=== PATIENT | female | born 1955 | race Caucasian/White ===

== ENCOUNTER → 2017-07-18 | Outpatient (CLI) | payer OTHER ==
[~2017-07-18] VITALS: Ht 162.6 cm; Wt 101.2 kg
[~2017-07-18] MED LIST: AMBIEN CR6.25 MG PO; AMLODIPINE BES2.5 MG PO; AMLODIPINE BESYL5 MG PO; Amlodipine Besylate PO; CIPROFLOXACIN500 M1 PO; FARXIGA5 MG PO; FIORICET 50-301 EAC1 PO; FUROSEMIDE40 MG PO; GAS RELIEF180 M1 PO; GLYBURIDE METFORMIN PO; GLYBURIDE-METF1 EAC1 PO; JANUVIA100 MG PO; Keflex PO; LANTUS 3 M100 UNITS1 SC; LEVOXYL125 MCG PO; Lasix PO; MECLIZINE HCL25 MG PO; MELOXICAM7.5 MG PO; METAXALONE800 MG PO; NOVOLOG PE100 UNITS/ SC; PHENTERMINE HCL30 MG PO; RAMIPRIL10 MG PO; SYNTHROID25 MCG PO; TRAMADOL HCL50 MG PO; TRESIBA FL200 UNIT/1 SC; VICTOZA0.6 MG/0.1 SC; WOMEN'S DAILY1 EAC4 PO; ZOLPIDEM TARTRA10 MG PO; Zolpidem Tartrate PO
[2017-07-18 10:34] LABS: CHLORIDE 100 MEQ/L (99-109); CREATININE 0.9 MG/DL (0.6-1.3); GFR ESTIMATE (CALCULATED) > 59 mL/min/; GLUCOSE 53 mg/dL (70-99); POTASSIUM 3.5 MEQ/L (3.7-5.4); SODIUM 139 MEQ/L (136-147); UREA NITROGEN (BUN) 13 mg/dL (9-23)
== END | disposition home or self-care (01) ==
LOC: AMB 06-27 07:00
PROVIDERS: Internal Medicine
PROC: 0DJD8ZZ Inspection of Lower Intestinal Tract, Via Natural or Artificial Opening Endoscopic (ICD-10-PCS; principal; 2017-07-18)
DX: Z12.11 Encounter for screening for malignant neoplasm of colon (principal); K59.00 Constipation, unspecified; K62.89 Other specified diseases of anus and rectum; I10 Essential (primary) hypertension; E11.9 Type 2 diabetes mellitus without complications; Z79.4 Long term (current) use of insulin; E66.9 Obesity, unspecified; Z68.41 Body mass index [BMI] 40.0-44.9, adult; E03.9 Hypothyroidism, unspecified; Z82.61 Family history of arthritis; Z82.49 Family history of ischemic heart disease and other diseases of the circulatory system; Z80.1 Family history of malignant neoplasm of trachea, bronchus and lung; Z83.3 Family history of diabetes mellitus; Z82.0 Family history of epilepsy and other diseases of the nervous system; Z88.0 Allergy status to penicillin; Z88.8 Allergy status to other drugs, medicaments and biological substances
CPT/HCPCS: 80048; 82948; J2250; J3010

== ENCOUNTER 2017-07-29 10:02 | Day surgery (SDC) | payer OTHER ==
[~2017-07-29] VITALS: Ht 162.6 cm; Wt 101.2 kg
[2017-07-29 10:59] VITALS: BP 173/83
[2017-07-29 13:52] VITALS: BP 132/73
[2017-07-29 14:46] VITALS: BP 116/69
== END 2017-07-29 14:50 | disposition home or self-care (01) ==
LOC: SDC 10:02
PROVIDERS: Orthopaedic Surgery
DX: G56.02 Carpal tunnel syndrome, left upper limb (principal); M65.332 Trigger finger, left middle finger; E11.9 Type 2 diabetes mellitus without complications; Z79.4 Long term (current) use of insulin; G47.30 Sleep apnea, unspecified; E03.9 Hypothyroidism, unspecified; M19.90 Unspecified osteoarthritis, unspecified site; I10 Essential (primary) hypertension; Z98.1 Arthrodesis status; Z88.0 Allergy status to penicillin; Z88.8 Allergy status to other drugs, medicaments and biological substances
CPT/HCPCS: 82948; J0330; J1170; J2250; J2405; J3010

== ENCOUNTER 2017-09-05 11:05 | Emergency (ER) | payer OTHER ==
[~2017-09-05] VITALS: Ht 162.6 cm; Wt 100.6 kg
[2017-09-05 12:02] LABS: HEMATOCRIT 41.9 % (36.0-46.0); HEMOGLOBIN 13.9 G/DL (11.9-15.5); MCH 28.3 PG (29.0-34.0); MCHC 33.2 G/DL (30.0-36.0); MCV 85.3 FL (83-99); PLATELET COUNT 266 K/uL (156-360); RBC DIS.WIDTH-CV 14.8 % (11.8-14.6); RBC DIS.WIDTH-SD 46.1 % (39-53); RED BLOOD COUNT 4.91 M/uL (3.80-5.20); WHITE BLOOD COUNT 11.1 K/uL (4.1-10.2)
[2017-09-05 12:19] LABS: CHLORIDE 105 mEq/L (99-109); POTASSIUM 3.8 mEq/L (3.7-5.4); SODIUM 140 mEq/L (136-147)
[2017-09-05 12:20] LABS: GLUCOSE 113 mg/dL (70-99)
[2017-09-05 12:24] LABS: CREATININE 0.9 mg/dL (0.6-1.3); GFR ESTIMATE (CALCULATED) > 59 mL/min/
[2017-09-05 12:25] LABS: UREA NITROGEN (BUN) 18 mg/dL (9-23)
[2017-09-05] MEDS ORDERED: BENTYL20 MG PO (14:28)
[2017-09-05 14:41] VITALS: BP 119/71
== END 2017-09-05 14:42 | disposition home or self-care (01) ==
LOC: EME 11:05
DX: K62.5 Hemorrhage of anus and rectum (principal); K64.4 Residual hemorrhoidal skin tags; R10.30 Lower abdominal pain, unspecified; E11.9 Type 2 diabetes mellitus without complications; Z79.4 Long term (current) use of insulin; E03.9 Hypothyroidism, unspecified; I10 Essential (primary) hypertension
CPT/HCPCS: 80048; 85027; 86850; 86900; 86901; 99281; 99284